=== PATIENT | female | born 2000 | race Hispanic/Latino ===

== ENCOUNTER 2019-02-14 21:47 | Emergency (ER) | payer MEDICAID ==
[2019-02-14 22:41] LABS: HCG,QUAL RESULT POSITIVE (NEGATIVE)
[2019-02-14 22:42] LABS: APPEARANCE,URINE Cloudy (CLEAR); BILIRUBIN,URINE Negative (NEGATIVE); COLOR,URINE Yellow (YELLOW); GLUCOSE, URINE (UA) 500 mg/dL (NEGATIVE); KETONES,URINE Negative (NEGATIVE); LEUKOCYTE ESTERASE ,URINE Large (NEGATIVE); NITRATE,URINE Negative (NEGATIVE); OCCULT BLOOD,URINE Trace (NEGATIVE); PH,URINE 7.5 (5.0-8.0); PROTEIN,URINE Trace mg/dL (NEGATIVE)
[2019-02-14 23:00] LABS: BACTERIA,URINE Many /HPF (None Seen)
[2019-02-14 23:01] LABS: CALCIUM OXALATE CRYSTALS,UR Rare /LPF (None Seen)
[2019-02-14] MEDS ORDERED: ACETAMINOPHEN EXTRA STRENGTH 500 MG TABLET ONE (23:39)
== END 2019-02-14 23:45 | disposition home or self-care (01) ==
LOC: EDH 21:47
DX: O9A.212 Injury, poisoning and certain other consequences of external causes complicating pregnancy, second trimester (principal); Z3A.14 14 weeks gestation of pregnancy; Z88.0 Allergy status to penicillin; W01.0XXA Fall on same level from slipping, tripping and stumbling without subsequent striking against object, initial encounter; Y93.01 Activity, walking, marching and hiking; Y92.89 Other specified places as the place of occurrence of the external cause; Y99.8 Other external cause status
CPT/HCPCS: 81001; 81025

== ENCOUNTER 2019-07-06 05:32 | Inpatient (IN) | payer MEDICAID ==
[~2019-07-06] VITALS: Ht 149.9 cm; Wt 94.8 kg
[2019-07-06] MEDS ORDERED: LACTATED RINGERS 1000ML IV PRN (05:45)
[2019-07-06 05:48] VITALS: BP 149/86
[2019-07-06] MEDS ORDERED: PREN1TAB80 PO (05:48)
[2019-07-06 06:00] LABS: APPEARANCE,URINE Turbid (CLEAR); BILIRUBIN,URINE Negative (NEGATIVE); COLOR,URINE Yellow (YELLOW); GLUCOSE, URINE (UA) Negative (NEGATIVE); KETONES,URINE Negative (NEGATIVE); LEUKOCYTE ESTERASE ,URINE Small (NEGATIVE); NITRATE,URINE Negative (NEGATIVE); OCCULT BLOOD,URINE Large (NEGATIVE); PH,URINE 8.5 (5.0-8.0); PROTEIN,URINE 300 mg/dL (NEGATIVE); UROBILINOGEN,URINE 0.2 mg/dL (0.2-1.0)
[2019-07-06 06:15] LABS: AMORPHOUS SEDIMENT,UR Moderate /LPF (None Seen); AMPHET/METH SCREEN,URINE NEGATIVE (NEGATIVE); BACTERIA,URINE Moderate /HPF (None Seen); BARBITURATE SCREEN, URINE NEGATIVE (NEGATIVE); BENZODIAZEPINES SCREEN,URINE NEGATIVE (NEGATIVE); CANNABINOID SCREEN,URINE NEGATIVE (NEGATIVE); COCAINE SCREEN,URINE NEGATIVE (NEGATIVE); MUCUS,URINE Few LPF (None Seen); OPIATE SCREEN,URINE NEGATIVE (NEGATIVE); PHENCYCLIDINE SCREEN,URINE NEGATIVE (NEGATIVE); SQUAMOUS EPITHELIAL CELL,UR Many /HPF (0-2)
[2019-07-06] MEDS ORDERED: LACTATED RINGERS 1000ML 1,000 ML IV PRN (06:26)
[2019-07-06 06:33] LABS: HEMATOCRIT 34.2 % (36-48); MEAN CORPUSCULAR HGB CONC 32.2 g/dL (32.0-36.0); MEAN CORPUSCULAR VOLUME 80.9 fL (80-100); PLATELET COUNT (AUTO) 352 K/uL (130-400); RED BLOOD CELL COUNT(AUTO) 4.23 MIL/uL (4.00-5.50); RED CELL DISTRIBUTION WIDTH 13.2 % (11.0-15.5); WHITE BLOOD COUNT (AUTO) 11.3 K/uL (4.8-10.8)
[2019-07-06] MEDS: CLINDAMYCIN 600 MG/D5% WATER 50 ML IV SCH ×2 (06:44→13:06)
[2019-07-06] MEDS ORDERED: OXYTOCIN 10 USP UNITS/ML 20 UNIT in LACTATED RINGERS 1000ML 1,000 ML IV SCH (07:45)
[2019-07-06] MEDS ORDERED: PROMETHAZINE HCL 25 MG/ML 1ML AMPULE IM SCH (11:00)
[2019-07-06] MEDS ORDERED: MEPERIDINE-PF 50 MG/ML SYG IVP SCH (11:00)
[2019-07-06] MEDS: OXYTOCIN-LR 20 UNITS/1000 ML 1,000 ML IV SCH (14:25)
[2019-07-06] MEDS ORDERED: LANOLIN 30GM OINTMENT TP PRN (14:30)
[2019-07-06] MEDS ORDERED: WITCH HAZEL 1 PAD TP PRN (14:30)
[2019-07-06] MEDS ORDERED: ACETAMINOPHEN 325 MG TAB PO PRN (14:30)
[2019-07-06] MEDS ORDERED: ACETAMINOPHEN-CODEINE 300/30MG TAB PO PRN (14:30)
[2019-07-06] MEDS ORDERED: BENZOCAINE/LANOLIN/ALOE VERA 60 ML AEROSOL TP PRN (14:30)
[2019-07-06] MEDS ORDERED: MEASLES/MUMPS/RUBELLA VACCINE, LIVE 0.5 ML/VIAL SQ PRN (14:30)
[2019-07-06] MEDS ORDERED: OXYTOCIN-LR 20 UNITS/1000 ML 1,000 ML IV SCH (14:30)
[2019-07-06] MEDS ORDERED: DIPH,PERTUSS(ACELL),TET VAC/PF 0.5 ML VIAL IM PRN (14:30)
[2019-07-06 15:09] VITALS: BP 127/61
[2019-07-06] MEDS ORDERED: FLU VACC QS2019-20 36MOS UP/PF 60 MCG/0.5 ML ML IM ONE (15:25)
[2019-07-06] MEDS ORDERED: FLU VACC QS2019-20 36MOS UP/PF 60 MCG/0.5 ML ML IM SCH (15:30)
[2019-07-06 16:39] VITALS: BP 117/43
[2019-07-06] MEDS: IBUPROFEN 600 MG TABLET PO PRN (18:22)
[2019-07-06 19:47] VITALS: BP 127/58
[2019-07-06] MEDS: DOCUSATE SODIUM 100 MG CAP PO SCH (21:02)
[2019-07-06 23:44] VITALS: BP 116/58
[2019-07-07] MEDS: CLINDAMYCIN 600 MG/D5% WATER 50 ML IV SCH ×2 (00:30→00:48)
[2019-07-07 03:42] VITALS: BP 120/56
[2019-07-07 05:31] LABS: MEAN CORPUSCULAR HEMOGLOBIN 25.6 pg (27.0-33.0); MEAN CORPUSCULAR HGB CONC 31.4 g/dL (32.0-36.0); MEAN CORPUSCULAR VOLUME 81.5 fL (80-100); PLATELET COUNT (AUTO) 312 K/uL (130-400); RED BLOOD CELL COUNT(AUTO) 3.56 MIL/uL (4.00-5.50); RED CELL DISTRIBUTION WIDTH 13.2 % (11.0-15.5); WHITE BLOOD COUNT (AUTO) 12.3 K/uL (4.8-10.8)
[2019-07-07] MEDS: OXYTOCIN-LR 20 UNITS/1000 ML 1,000 ML IV SCH (06:30)
[2019-07-07 07:13] LABS: HEPATITIS Bs ANTIGEN SCREEN P Negative (Negative)
[2019-07-07] MEDS: IBUPROFEN 600 MG TABLET PO PRN (07:30)
[2019-07-07 07:48] VITALS: BP 122/47
[2019-07-07] MEDS: DOCUSATE SODIUM 100 MG CAP PO SCH (09:10)
[2019-07-07 11:10] VITALS: BP 123/55
--- NOTE | 2019-07-07 14:55 | NUR ---
DISCHARGE PT LEFT UNIT VIA WHEELCHAIR, WITH BABY IN ARMS, ACCOMPANIED BY FAMILY. DENIED PAIN AND HAD NO COMPLAINTS. BABY STRAPPED IN CAR SEAT. PT AND BABY TRANSPORTED BY PERSONAL VEHICLE.
== END 2019-07-07 14:55 | disposition home or self-care (01) | DRG 560 ==
LOC: EDH 05:32 → LDH 05:33 → OBSVTOIN 05:33 → WSH 15:07
PROVIDERS: ADMIT Obstetrics & Gynecology; ATTEND Obstetrics & Gynecology
PROC: 10E0XZZ Delivery of Products of Conception, External Approach (ICD-10-PCS; principal; 2019-07-06)
PROC: 0W8NXZZ Division of Female Perineum, External Approach (ICD-10-PCS; 2019-07-06)
PROC: 3E02340 Introduction of Influenza Vaccine into Muscle, Percutaneous Approach (ICD-10-PCS; 2019-07-06)
PROC: 3E0234Z Introduction of Serum, Toxoid and Vaccine into Muscle, Percutaneous Approach (ICD-10-PCS; 2019-07-06)
DX: O69.81X0 Labor and delivery complicated by cord around neck, without compression, not applicable or unspecified (principal); Z37.0 Single live birth; Z23 Encounter for immunization; Z3A.36 36 weeks gestation of pregnancy
CPT/HCPCS: 36415; 80305; 81001; 85027; 86592; 86850; 86900; 86901; 87340; 90715; A4351; G0378; J2175; J2550; J2590; J3490; J7120; Q2035

== ENCOUNTER 2022-10-03 16:37 | Emergency (ER) | payer MEDICAID ==
[~2022-10-03] VITALS: Ht 149.9 cm; Wt 89.8 kg
[~2022-10-03 16:37] MED LIST: PREN1TAB80 PO
[2022-10-03 17:15] LABS: APPEARANCE,URINE CLOUDY (CLEAR); BILIRUBIN,URINE NEGATIVE (NEGATIVE); COLOR,URINE YELLOW (YELLOW); GLUCOSE, URINE (UA) NEGATIVE (NEGATIVE); KETONES,URINE 40 mg/dL (NEGATIVE); LEUKOCYTE ESTERASE ,URINE 500 Leu/uL (NEGATIVE); NITRATE,URINE NEGATIVE (NEGATIVE); OCCULT BLOOD,URINE LARGE (NEGATIVE); PH,URINE 5.5 (5.0-8.0); PROTEIN,URINE 70 mg/dL (NEGATIVE); UROBILINOGEN,URINE 0.2 mg/dL (0.2-1.0)
[2022-10-03 17:22] LABS: HCG,QUALITATIVE URINE NEGATIVE (NEGATIVE)
[2022-10-03 17:28] VITALS: BP 124/72
[2022-10-03 17:37] LABS: BACTERIA,URINE RARE /HPF (None Seen); MUCUS,URINE FEW LPF (None Seen); RBC,URINE TNTC /HPF (0-1); SQUAMOUS EPITHELIAL CELL,UR MANY /HPF (0-2); WBC,URINE >100 /HPF (0-1)
[2022-10-03] MEDS ORDERED: MEDR10TA PO (18:10)
[2022-10-03] MEDS ORDERED: SULF1TAB42 PO (18:10)
== END 2022-10-03 18:48 | disposition home or self-care (01) ==
LOC: EDH 16:37
DX: N93.8 Other specified abnormal uterine and vaginal bleeding (principal); N39.0 Urinary tract infection, site not specified; N83.201 Unspecified ovarian cyst, right side; Z88.0 Allergy status to penicillin
CPT/HCPCS: 76857; 81001; 81025; 87088